=== PATIENT | male | born 1955 | race Caucasian/White ===

== ENCOUNTER 2023-01-13 11:20 | Outpatient (CLI) | payer MEDICARE | END 2023-01-13 11:21 | disposition home or self-care (01) | LOC: CSHRAD 11:20 | PROVIDERS: ATTEND Internal Medicine Hematology & Oncology | DX: C90.00 Multiple myeloma not having achieved remission (principal); D47.2 Monoclonal gammopathy; R91.1 Solitary pulmonary nodule; R91.8 Other nonspecific abnormal finding of lung field | CPT/HCPCS: 77075 ==

== ENCOUNTER 2023-08-07 10:38 | Outpatient (CLI) | payer MEDICARE ==
[2023-08-07] MEDS ORDERED: Iopamidol 300 61% 100 ML VIAL FS ONE (12:46)
== END 2023-08-07 10:39 | disposition home or self-care (01) ==
LOC: CSHCT 10:38
PROVIDERS: ATTEND Internal Medicine Hematology & Oncology
DX: R91.1 Solitary pulmonary nodule (principal); R91.8 Other nonspecific abnormal finding of lung field; J94.8 Other specified pleural conditions; J43.9 Emphysema, unspecified; J98.4 Other disorders of lung
CPT/HCPCS: 71260; 82565; Q9967